=== PATIENT | female | born 1975 | race Caucasian/White ===

== ENCOUNTER → 2017-11-22 07:45 | Outpatient (CLI) | payer BC, SELFPAY ==
[2017-11-22 08:22] LABS: Absolute Lymphocyte Count 1.84 X10^3/ul (0.83-4.51); Absolute Neutrophil Count 8.2 X10^3/uL (2.0-7.7); Basophil# 0.02 X10^3/uL; Basophil% 0.2 % (0-1); Hematocrit 37.4 % (37-47); Hemoglobin 12.1 g/dl (12.0-15.0); Lymphocyte # 1.84 X10^3/ul (4.0); Lymphocyte % 17.2 % (19-41); Mean Corp Hgb Conc 32.4 g/gl (32-36); Mean Corpuscular Volume 80.3 fL (81-99); Mean Platelet Vol. 13.1 fl (6.2-12.0); Monocyte# 0.61 X10^3/uL; Monocyte% 5.7 % (0-10); Neutrophil # 8.23 X10^3/uL (2.7-7.7); Neutrophil % 76.8 % (47-70); Platelet Count 235 K/mm3 (150-450); RBC Distribution Width CV 14.7 % (11.6-14.6); RBC Distribution Width SD 42.2 fl (35.1-43.9); Red Blood Count 4.66 M/mm3 (4.2-5.4); White Blood Count 10.7 K/mm3 (4.4-11.0)
[2017-11-22 08:26] LABS: POSITIVE COUNT NO; POSITIVE DIFFERENTIAL NO; POSITIVE MORPHOLOGY NO
[2017-11-22 09:03] LABS: ALB/GLOB Ratio 0.7 RATIO (0.9-2.4); AST(SGOT) 13 U/L (15-37); Alanine Aminotransfer ALT/SGPT 22 U/L (13-56); Albumin, Serum 3.5 g/dL (3.2-5.0); Alkaline Phosphatase 46 U/L (45-117); Anion Gap 11 (5-15); BUN 19 mg/dL (7-18); Calcium,Total 8.8 mg/dL (8.5-10.1); Chloride 104 mmol/L (98-107); Cholesterol 295 mg/dL (200); Creatinine, Serum 0.68 mg/dL (0.55-1.02); EST Glomerular Filtration Rate 101 mL/min (>60); Est Glom Filt Rate - Afr Amer 122 mL/min (>60); Ferritin 4 ng/mL (8-252); Globulin 4.8 g/dL (2.2-4.2); Glucose 119 mg/dL (74-106); High Density Lipoprotein 63 mg/dL; Iron 52 ug/dL (50-170); Potassium 4.1 mmol/L (3.5-5.1); Protein, Total 8.3 g/dL (6.4-8.2); Sodium Level 139 mmol/L (136-145); Thyroid Stim Hormone (TSH) 0.81 uIU/mL (0.358-3.74); Triglycerides 152 mg/dL; Very Low Density Lipoprotein 30 mg/dL (5-40)
[2017-11-22 09:09] LABS: Vitamin B12 867 pg/mL (211-911); Vitamin D,25 Hydroxy 27.4 ng/mL (29.95-100.01)
== END ==
PROVIDERS: Family Provider Family Medicine; PCP Family Medicine; Visit Provider Family Medicine
DX: E78.5 Hyperlipidemia, unspecified (principal); R20.2 Paresthesia of skin; Z51.81 Encounter for therapeutic drug level monitoring; E55.9 Vitamin D deficiency, unspecified; D64.9 Anemia, unspecified; R53.83 Other fatigue
CPT/HCPCS: 36415; 80053; 80061; 82306; 82607; 82728; 83540; 84443; 85025

== ENCOUNTER → 2018-08-07 16:05 | Outpatient (CLI) | payer BC, SELFPAY ==
[2018-08-07 17:14] LABS: Erythrocyte Sedimentation Rate 10 mm/hr (0-20)
[2018-08-07 17:23] LABS: CRP 9.86 mg/L (0.0-3.0); Rheumatoid Factor < 10.0 IU/mL (<15)
[2018-08-10 02:33] LABS: Rapid Plasmin Reagin (RPR) NONREACTIVE (NONREACTIVE)
[2018-08-10 11:58] LABS: ANTINUCLEAR ANTIBODIES DIRECT Positive (Negative)
[2018-08-15 15:38] LABS: CCP IgG Antibodies 7 units (0-19); HLA B27 Negative (.); Treponema palladium Ab (FTA) Non Reactive (Non Reactive)
== END ==
PROVIDERS: Family Provider Family Medicine; PCP Family Medicine; Referring Provider Family Medicine; Visit Provider Family Medicine
DX: M25.50 Pain in unspecified joint (principal); Z20.1 Contact with and (suspected) exposure to tuberculosis; Z20.2 Contact with and (suspected) exposure to infections with a predominantly sexual mode of transmission
CPT/HCPCS: 36415; 81374; 85652; 86038; 86140; 86200; 86431; 86592; 86780

== ENCOUNTER → 2018-08-14 09:18 | Outpatient (CLI) | payer BC, SELFPAY ==
[2018-08-14 09:11] VITALS: BMI 26.1
--- NOTE | 2018-08-14 09:21 | RAD_ITS ---
STUDY: X-RAY - LUMBOSACRAL SPINE REASON FOR EXAM: Female, 43 years old. Pain. TECHNIQUE: 6 view(s) of the lumbosacral spine were obtained. COMPARISON: None FINDINGS: Normal lumbar lordosis. There is no substantial scoliosis. There is normal alignment of the vertebrae. There is no alteration of alignment with flexion or extension. Normal vertebral bodies and endplates. Normal disc space heights. Cervical spine fracture Normal bilateral sacral ala, sacroiliac joints, and visualized sacrum. Normal visualized soft tissue structures. RAD/L/S Spine Comp/w Bending Views IMPRESSION: Normal x-ray examination of the lumbosacral spine. Electronically Signed: Robert Mace DO at 22:18 EST Tel [phone], Service support ,
--- OUTSIDE RECORDS SUMMARY | 2018-09-30 08:11 | XMS RPT_ITS ---
:1975 Author Organization OHIP Care Team Providers Name Role Phone Reyna Germain Attending Unavailable Malys, Viola Referring Unavailable Reyna Germain Attending Unavailable Reyna Germain Referring Unavailable Malys, Viola Primary Care Unavailable Malys, Viola Attending Unavailable Malys, Viola Referring Unavailable Malys, Viola Primary Care Unavailable Malys, Viola Attending Unavailable Malys, Viola Primary Care Unavailable Malys, Viola Referring Unavailable Reyna Germain Attending Unavailable GermainReyna Referring Unavailable Junaid, Viola Primary Care Unavailable MalViola foley Attending Unavailable Malog, Viola Primary Care Unavailable Malog, Viola Referring Unavailable PROBLEMS PROBLEMS DATE TYPE CONDITION / CODE ATTENDING STATUS SOURCE 08/16/2018 Unknown Z20.2 - Contact Viola Quiroga Active [place] with and Community (suspected) Hospital exposure to Repository infections with a predominantly sexual mode of transmission / Z20.2(ICD-10) 08/16/2018 Unknown R76.8 - Other Malys, Viola Active [place] specified abnormal Community immunological Hospital findings in serum / Repository R76.8(ICD-10) 08/14/2018 Unknown M54.5 - Low back Jessa Eryna Active [place] pain / Community M54.5(ICD-10) Hospital Repository 08/17/2018 Unknown M25.50 - Pain in Staci Quirogaa Active [place] unspecified joint / Community M25.50(ICD-10) Hospital Repository 11/22/2017 Unknown E78.5 - Malys, Viola Active [place] Hyperlipidemia, Community unspecified / Hospital E78.5(ICD-10) Repository 11/22/2017 Unknown R20.2 - Paresthesia Malys, Viola Active [place] of skin / Community R20.2(ICD-10) Hospital Repository 11/22/2017 Unknown Z51.81 - Encounter Viola Quiroga Active [place] for therapeutic Community drug level Hospital monitoring / Repository Z51.81(ICD-10) 11/22/2017 Unknown E55.9 - Vitamin D Malys, Viola Active [place] deficiency, Community unspecified / Hospital E55.9(ICD-10) Repository 11/22/2017 Unknown D64.9 - Anemia, Malys, Viola Active [place] unspecified / Community D64.9(ICD-10) Hospital Repository 11/22/2017 Unknown R53.83 - Other Malys, Viola Active [place] fatigue / Community R53.83(ICD-10) Hospital Repository PROCEDURES PROCEDURES No Procedure Records FoundRESULTS RESULTS INITAL EVALUATION (1) Observed: 08/30/2018 Status: F Source: [place] - PT 2:12 PM [facility] HOSPITAL REPOSITORY [facility] Physical Therapy [address] [place] [address] / REHABILITATION SERVICES INITIAL EVALUATION MR#: [id number] Acct: [id number] Name: RASHAD KRISHNAMURTHY Rep #: [id number] : 1975 43 From: Luther Gauthier PT. T, OCS Referring Dr.: Reyna Germain MD Status: REG RCR Insurance: [employer] SELF PAY INSURANCE Patient's Visit Information RASHAD KRISHNAMURTHY is a 43 year old F referred to Physical Therapy by Reyna Germain MD with a diagnosis of BACK PAIN,LEFT LUBAR RADICULOPATHY. Date of Evaluation: 08/27/18 Physical Therapist: Maksim Telles PT, Cert T, OCS - Visit Plan Frequency: 2x /Week Duration: 4 Weeks Plan: LE FLEXABLITY,DLS ,ABD/BACK ,POSTURAL EX'S,AND MODALITIES NEEDED - Subjective Findings: This 43 y/o female presents to physical therapy with lumbar radiculopathy . Patient has lumbar pain with radicular symptoms since November. Patient symptoms worse with bending ,lifting,job demands ,sitting. Symptoms better injections,MEDS. Pateint tried chiropractor made symptoms worse. Patient coughing/sneezing worse . Patient had parathesia/tingling. Patient pain worse at night. 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 Patient has TENS at unit. Patient symptoms affect QOL and job demands. SOCIAL: 3 maura. 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 PALPATION: unremarkable. NEURO: denies parathesia/tingling,reflexes 1/3 ,L3-4,L4-5,L5-S1. MMT: quads/hams/hip 4/5,ankle 4/5. LUMBAR ROM: flexion min loss,extension mod loss pain ,side glides minm loss. SYMMTRIES : align - Special Tests L/S Slump test left side: Positive L/S Slump test right side: Positive L/S Left Straight Leg Raise: Negative L/S Right Straight Leg Raise: Positive Lumbar Standing: Flexion - Mechanical Response: No effect Lumbar Standing: Flexion - Symptoms During Testing: Increases Lumbar Standing: Flexion - Symptoms After Testing: No effect Lumbar Standing: Extension - Mechanical Response: No effect Lumbar Standing: Extension - Symptoms During Testing: Increases Lumbar Standing: Extension - Symptoms After Testing: Worse Lumbar Standing: Right Side Glides - Mechanical Response: No effect Lumbar Standing: Right Side Hampton - Symptoms During Testing: No effect Lumbar Standing: Right Side [place] - Symptoms After Testing: No effect Lumbar Standing: Left Side [place] - Mechanical Response: No effect Lumbar Standing: Left Side [place] - Symptoms During Testing: Increases Lumbar Standing: Left Side [place] - Symptoms After Testing: Worse Lumbar Lying: Flexion - Mechanical Response: No effect Lumbar Lying: Flexion - Symptoms During Testing: No effect Lumbar Lying: Flexion - Symptoms After Testing: No effect Lumbar Lying: Extension - Mechanical Response: No effect Lumbar Lying: Extension - Symptoms During Testing: Increases Lumbar Lying: Extension - Symptoms After Testing: Worse - Goals Goal 1:: Independant with HEP. Goal Time Frame: 4-6 Weeks Goal 2:: Independant with posture/body mechanics Goal Time Frame: 4-6 Weeks Goal 3:: Decrease lumbar symptoms with job demands by 70% or grearer to improve function Goal Time Frame: 4-6 Weeks Goal 4:: Patient to improve lumbar ROM for function of recovery Goal Time Frame: 4-6 Weeks Goal 5:: Patient be able to perform job demands and ADL'S with min limitations Goal Time Frame: 4-6 Weeks Goal 6:: Patient improve MERRILL score by 5 points or greater to imprpove QOL. Goal Time Frame: 4-6 Weeks - Rehabilitation Potential Physical Therapy Diagnosis: This 43 y/o femal had HNP with lateral stenosis with pain ,loss of extension,flexion makes symptoms worse,lifting,bending and impairs job demands.Patient also has weak core and generalized weakness. Rehabilitation Potential: Good - Anticipated Interventions Patient/Client Instruction: Educate patient on: Condition, Plan of Care For the Purpose of:: To decrease pain, To increase ROM, To improve muscle performance and motor function, To improve ability to perform ADL's, To increase tolerance to activity/condition/position, To decrease level of supervision to perform tasks, To improve ability of physical actions for home/community/work/leisure, To improve health of tissue, To decrease soft tissue restriction, To improve safety, To improve health and function, To improve ability to perform tasks related to life management Therapeutic Exercise to Include: Strength training, Body mechanics, Postural training, Flexibilty training, Dynamic Lumbar Stabilization For the Purpose of:: To decrease pain, To increase ROM, To improve muscle performance and motor function, To increase tolerance to activity/condition/position, To improve performance and independence with ADL's, To improve ability of physical actions for home/community/work/leisure, To improve health of tissue, To decrease soft tissue restriction, To increase flexibility/ROM, To improve ability to perform tasks related to life management TENS: Yes IF ES: Yes Thermo therapy (hot pack): Yes Ultrasound (thermal/non thermal): Yes For the Purpose of:: To decrease pain, To increase ROM, To improve nutrient delivery to tissue, To increase oxygenation perfusion, To improve health of tissue, To decrease soft tissue restriction Thank you for the opportunity to evaluate your patient. For Medicare and Medicare HMO plans, please review the plan of care and approve it. It will need to be FAXED BACK to us at [phone] for Medicare purposes. For Medicare only, by signing this I certify the plan of care. Please let me know if there are questions or concerns regarding this plan of care. Physician Signature: Date: <Electronically signed by Maksim Telles PT, Cert. CURTIS, OCS> 08/30/18 1412 CC: Reyna Germain MD; [place] Quiroga DO NICK Signed ORTHOPEDIC VISIT Observed: 08/25/2018 Status: F Source: [place] REPORT 8:[address] [facility] REPOSITORY [facility] Medicine [address] [place] [id number] OFFICE VISIT Date of Service: 08/14/18 MR#: [id number] Acct: [id number] Name: RASHAD KRISHNAMURTHY Rep #: [id number] : 1975 Provider: Reyna Germain MD Age/Sex: 43/F Location: BMS.SMO Status: Signed Intake Vital Signs08/14/18 Height 5 ft 4 in 08/14/18 Weight: 152 lb 08/14/18 Body Mass Index (BMI) 26.1 Intake Visit Reasons: low back pain Is patient in pain?: No Medications amlodipine 5 mg tablet 5 mg PO DAILY 08/15/18 [History Confirmed 08/15/18] bupropion HCl XL 300 mg 24 hr tablet, extended release 300 mg PO QAM 08/15/18 [History Confirmed 08/15/18] norgestimate-ethinyl estradiol 0.18 mg/0.215mg/0.25mg-35 mcg(21)tablet 1 tab PO DAILY 08/15/18 [History Confirmed 08/15/18] HPI low back pain: Details: RASHAD KRISHNAMURTHY is a 43 year old RHD F here today for lumbar pain and left posterior thigh, calf and plantar foot pain. Her pain began in September of 2017 and her pain was 10/10, she tried pain patches and tens unit at home. She does a lot of heavy lifting and believes that is how she hurt her back. She did get a toradol shot from family doctor and she sees Dr Santos for injections that are helpful for about two- three months at a time, her last one was 6wks ago and they are relieving the leg n/t and her foot numbness is completely gone. She states they were nerve blocks in the summer and fall of 2017. She had tried chiropractice treatment, which worsened her symptoms. Her pain since 09/2017 is nearly 80% improved. She has no leg pain anymore. She has had no physical therapy. She takes tramadol as needed, about 2 times per week. Her symptoms were worse with bending and lifting and improved with rest and laying. She was unable to tolerate gabapentin due to drowsiness and weight gain. She has failed cymbalta in the past as well. She denies difficulty with hand dexterity, gait instability or bowel or bladder issues. She is currently undergoing work up for a positive MICAELA and possible lupus. 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 She denies nicotine use. Ortho Exam Spine Neuro: Yes Straight Leg Raise (mild discomfort on the left calf), Light Touch Sensation (intact throughout), Avendano's (negative bilaterally), Clonus (none bilaterally) and Babinski (downgoing bilaterally) General: alert, oriented x3 Skin: Yes dysraphism (none) Capillary Refill <2sec: Yes Palpable Pulses: 2+ dp and pt pulses bilaterally Gait: normal gait, other (heel and toe walk intact) Motor: strength 5/5 throughout Sensory Exam: no sensory deficits noted DTR's: Rt Triceps: 2+, Lt Triceps: 2+, Rt Biceps: 2+, Lt Biceps: 2+, Rt Brachioradialis: 2+, Lt Brachioradialis: 2+, Rt Patellar: 2+, Lt Patellar: 2+, Rt Ankle: 2+, Lt Ankle: 2+ Plantar Reflexes: Downgoing: bilateral Coordination: tandem gait normal, Romberg test normal SPINE TESTING CERVICAL THORACIC LUMBAR SLR: Negative Musculoskeletal General: Yes normal gait Cervical Spine: cervical ROM normal Thoracic/Lumbar Spine: thoraco-lumbar ROM limited, paraspinal tenderness, pain with thoraco-lumbar ROM (worse with lumbar extension than flexion) Strength 0=absent - 5=normal Deltoid R (C5): 5, Deltoid L (C5): 5, R Bicep (C5-6): 5, L Bicep (C5-6): 5, R Wrist Extensor (C6): 5, L Wrist Extensor (C6): 5, R Tricep (C7): 5, L Tricep (C7): 5, R Finger Flexors (C8): 5, L Finger Flexors (C8): 5, R First Dorsal Interossei (C8): 5, L First Dorsal Interossei (C8): 5, R Hip Flexor (L1-3): 5, L Hip Flexor (L1-3): 5, R Quadriceps (L2-4): 5, L Quadriceps (L2-4): 5, R Anterior Tibialis (L4-5): 5, L Anterior Tibialis (L4- 5): 5, R Hamstrings (L5-S1): 5, L Hamstrings (L5-S1): 5, GS (S1): 5, L GS (S1): 5, R Peroneals (S1): 5, L Peroneals (S1): 5 Assessment AND Plan Problems 1. Lumbar radiculopathy M54.16 Plan Imaging: XR lumbar spine 08/14/2018 reveals diffuse spondylosis MRI lumbar spine CD 02/26/2018 reveals diffuse spondylosis with left L4-5 lateral recess stenosis I/R/P: 1. back pain 2. left leg pain, improving 3. work up for positive MICAELA Ms. Krishnamurthy presents with back and left leg pain that is 80% improved since the onset. The natural history and course of the symptomatology of lumbar radiculopathy was discussed in detail with the patient. I answered all questions regarding the mode of onset, pathophysiology, symptoms, imaging findings, treatment options (both non-operative and operative) regarding her diagnosis. Given her symptoms have significantly improved, would recommend continued conservative treatment. She will continue to work with her PCP to rule out reasons for positive MICAELA, to include lupus. Follow up if symptoms recur or sooner if issues arise. Plan of care discussed. All questions answered. The patient verbalized understanding of the disease process and agreed to the treatment plan formulated for this visit. Orders Orders: Coding Level of Care Code Off vis,new,level 4 Diagnoses Lumbar radiculopathy M54.16 08/25/182040 <Electronically signed by Reyna Germain MD> Date Reyna Germain MD Cosigner Signature: Date (if applicable) CC: Trang Santos MD MICAELA W/COMPREHENSIVE Collected: 08/16/2018 Status: F Source: [place] 4:[address] [facility] REPOSITORY TYPE CODE TESTS RESULT OUT OF RANGE REFERENCE UNITS LAB L3100.5500 0-9 IU/mL Normal dsDNA AB 2 Result Comment: Negative <5 Equivocal 5 - 9 Positive >9 LAB L3100.9200 0.0-0.9 AI Anti-SS-A Normal < 0.2 LAB L3100.9300 0.0-0.9 AI Anti-SS-B Normal < 0.2 LAB L3100.9400 0.0-0.9 AI Anti-P Normal <0.2 LAB L3410.0427 0.0-0.9 AI ANTICHROMATIN Normal <0.2 LAB L3410.0500 0.0-0.9 AI ANTI-SAMEERA Normal <0.2 LAB L3410.0700 0.0-0.9 AI ANTISCLER Normal <0.2 LAB L3410.1200 0.0-0.9 AI HEARING CARE PROFESSIONAL Ab High 1.6 LAB L3410.1300 0.0-0.9 AI ZUÑIGA Ab Normal <0.2 LAB L3410.1310 0.0-0.9 AI ZUÑIGA/HEARING CARE PROFESSIONAL Ab Normal <0.2 LAB L3410.4010 0.0-0.9 AI ANTI-CENT B Normal <0.2 LAB L3410.4100 . COMMENT Normal Comment Result Comment: Autoantibody Disease Association Condition Frequency Antinuclear Antibody, SLE, mixed connective Direct (MICAELA-D) tissue diseases dsDNA SLE 40 - 60% Chromatin Drug induced SLE 90% SLE 48 - 97% SSA (Ro) SLE 25 - 35% Sjogren's Syndrome 40 - 70% Lupus 100% SSB (La) SLE 10% Sjogren's Syndrome 30% Sm (anti-Zuñiga) SLE 15 - 30% HEARING CARE PROFESSIONAL Mixed Connective Tissue Disease 95% (U1 nRNP, SLE 30 - 50% anti-ribonucleoprotein) Polymyositis and/or Dermatomyositis 20% Scl-70 (antiDNA Scleroderma (diffuse) 20 - 35% topoisomerase) Crest 13% Sameera-1 Polymyositis and/or Dermatomyositis 20 - 40% Centromere B Scleroderma - Crest variant 80% Ribosomal P SLE 10 - 20% Performed at: [facility] [address] [place], [place] [id number] Audio Visual Collections Coordinator: Enzo Hwang PhD, Phone: [phone] Performed By: #### L3100.5430 #### [facility] (refer to report for specific site) refer to report for address and phone number L/S SPINE COMP/W Observed: 08/14/2018 Status: F Source: [place] BENDING VIEWS 9:[address] [facility] REPOSITORY [facility] Imaging Services [address] [place] [address] L/S Spine Comp/w Bending Views MR#: [id number] Acct: [id number] Name: RASHAD KRISHNAMURTHY Rep #: [id number] : 1975 F 43 From: Robert Mace DO PCP: [place] Quiroga DO Status: REG CLI Study: L/S Spine Comp/w Bending Views Date of Exam: 08/14/18 Exam# [id number] Ordering Dr: Reyna Germain MD STUDY: X-RAY - LUMBOSACRAL SPINE REASON FOR EXAM: Female, 43 years old. Pain. TECHNIQUE: 6 view(s) of the lumbosacral spine were obtained. COMPARISON: None FINDINGS: Normal lumbar lordosis. There is no substantial scoliosis. There is normal alignment of the vertebrae. There is no alteration of alignment with flexion or extension. Normal vertebral bodies and endplates. Normal disc space heights. Cervical spine fracture Normal bilateral sacral ala, sacroiliac joints, and visualized sacrum. Normal visualized soft tissue structures. RAD/L/S Spine Comp/w Bending Views IMPRESSION: Normal x-ray examination of the lumbosacral spine. Electronically Signed: Robert Mace DO at 22:18 EST Tel [phone], Service support , CC: Reyna Germain MD; [place] Quiroga DO Supervisory Aide: Signed ERYTHROCYTE SED RATE Collected: 08/07/2018 Status: F Source: [place] 4:[address] [facility] REPOSITORY TYPE CODE TESTS RESULT OUT OF RANGE REFERENCE UNITS LAB L102.0000 0-20 mm/hr Normal SED RATE 10 Performed By: #### L101.9900 #### [facility] [address] [place], [place], [address] CRP Collected: 08/07/2018 Status: F Source: [place] 4:[address] [facility] REPOSITORY TYPE CODE TESTS RESULT OUT OF RANGE REFERENCE UNITS LAB L501.6710 0.0-3.0 mg/L High 9.86 C-REACTIVE PROT Result Comment: C-Reactive Protein (CRP) provides useful information for the diagnosis, therapy and monitoring of inflammatory processes and associated diseases. For the evaluation of Relative Risk for Cardiovascular Disease, a High Sensitivity CRP (HSCRP) should be ordered. Performed By: #### L501.6710, L505.7010 #### [facility] [facility] [place], [place], [address] RHEUMATOID FACTOR Collected: 08/07/2018 Status: F Source: [place] 4:[address] [facility] REPOSITORY TYPE CODE TESTS RESULT OUT OF RANGE REFERENCE UNITS LAB L505.7010 <15 IU/mL Normal RHEUMATOID FAC < 10.0 Performed By: #### L501.6710, L505.7010 #### [facility] [address] [facility] [place], [place], [id number] RAPID PLASMIN REAGIN Collected: 08/07/2018 Status: F Source: [place] (RPR) 4:[address] [facility] REPOSITORY TYPE CODE TESTS RESULT OUT OF REFERENCE UNITS RANGE LAB L700.5000 NONREACTIVE NONREACTIVE Normal RPR Performed By: #### L700.5000 #### [facility] [address] [facility] [place], [place], [id number] ANTINUCLEAR ANTIBODIES Collected: 08/07/2018 Status: F Source: [place] DIRECT 4:[address] [facility] REPOSITORY TYPE CODE TESTS RESULT OUT OF REFERENCE UNITS RANGE LAB L3100.5475 Negative High Positive MICAELA-DIRECT Result Comment: Performed at: [address] [id number] Audio Visual Collections Coordinator: Enzo Hwang PhD, Phone: [phone] Performed By: #### L3100.5475 #### [facility] (refer to report for specific site) refer to report for address and phone number MISCELLANEOUS LAB Collected: 08/07/2018 Status: F Source: [place] PROCEDURE 4:[address] [facility] REPOSITORY Order Comment: Test(s) Ordered: [id number] QUANTIFERON TYPE CODE TESTS RESULT OUT OF RANGE REFERENCE UNITS LAB L801.1541 Normal [facility] LAB TEST Result Comment: TEST RESULT LIMITS QuantiFERON-TB Gold Plus QuantiFERON Incubation Incubation performed. QuantiFERON Criteria The QuantiFERON-TB Gold Plus result is determined by subtracting the Nil value from either TB antigen (Ag) tube. The mitogen tube serves as a control for the test. QuantiFERON TB1 Ag Value 0.08 IU/mL QuantiFERON TB2 Ag Value 0.08 IU/mL QuantiFERON Nil Value 0.09 IU/mL QuantiFERON Mitogen Value >10.00 IU/mL QuantiFERON-TB Gold Plus Negative Negative TESTING PERFORMED AT [facility]. ORIGINAL REPORT ON FILE IN LAB CONTAINS ADDITIONAL TEST SITE INFORMATION. Performed By: #### L801.1541 #### [facility] [address] [place], [place], [address] TREPONEMA PALLADIUM AB Collected: 08/07/2018 Status: F Source: [place] (FTA) 4:[address] [facility] REPOSITORY TYPE CODE TESTS RESULT OUT OF RANGE REFERENCE UNITS LAB L801.4400 Non Reactive Normal FTA Non Reactive ABS Result Comment: Performed at: [address] [place] [id number] Audio Visual Collections Coordinator: Manuel Jj PhD, Phone: [phone] Performed at: [address] [id number] Audio Visual Collections Coordinator: Corinne Corea MD, Phone: [phone] Performed at: [address] [id number] Audio Visual Collections Coordinator: Enzo Hwang PhD, Phone: [phone] Performed By: #### L801.4400, L3410.1400, L4600.0100 #### [facility] (refer to report for specific site) refer to report for address and phone number HLA B27 Collected: 08/07/2018 Status: F Source: [place] 4:[address] [facility] REPOSITORY TYPE CODE TESTS RESULT OUT OF RANGE REFERENCE UNITS LAB L3410.1500 . Normal HLA Negative B27 Result Comment: HLA-B*27 Negative B27 allele interpretation for all loci based on IMGT/HLA database version 3.31.0 This test was developed and its performance characteristics determined by [facility]. It has not been cleared or approved by the Food and Drug Administration. HLA Lab CLIA ID Number [id number] This test was performed using PCR (Polymerase Chain Reaction)/SSOP (Sequence Specific Oligonucleotide Probes) technique. SBT (Sequence Based Typing) and/or SSP (Sequence Specific Primers) may be used as supplemental methods when necessary. Please contact [facility] Customer Service at if you have any questions. Director of HLA Laboratory Dr Manuel Jj, PhD Performed By: #### L801.4400, L3410.1400, L4600.0100 #### [facility] (refer to report for specific site) refer to report for address and phone number CCP IGG ANTIBODIES Collected: 08/07/2018 Status: F Source: [place] 4:[address] [facility] REPOSITORY TYPE CODE TESTS RESULT OUT OF RANGE REFERENCE UNITS LAB L4600.0100 0-19 units Normal ANTI-CCP 7 [id number] Result Comment: Negative <20 Weak positive 20 - 39 Moderate positive 40 - 59 Strong positive >59 Performed By: #### L801.4400, L3410.1400, L4600.0100 #### [facility] (refer to report for specific site) refer to report for address and phone number CBC W/DIFF, AUTOMATED Collected: 11/22/2017 Status: F Source: [place] 7:[address] [facility] REPOSITORY TYPE CODE TESTS RESULT OUT OF RANGE REFERENCE UNITS LAB L100.1000 4.4-11.0 K/mm3 Normal WBC 10.7 LAB L100.1200 4.2-5.4 M/mm3 Normal RBC 4.66 LAB L100.1300 12.0-15.0 g/dl Normal HGB 12.1 LAB L100.1400 37-47 % Normal HCT 37.4 LAB L100.1500 81-99 fL Low MCV 80.3 LAB L100.1600 27.0-32.0 pg Low MCH 26.0 LAB L100.1700 32-36 g/gl Normal MCHC 32.4 LAB L100.1810 11.6-14.6 % High RDW CV 14.7 LAB L100.1820 35.1-43.9 fl Normal RDW SD 42.2 LAB L100.1900 150-450 K/mm3 Normal PLT 235 LAB L100.2000 6.2-12.0 fl High MPV 13.1 LAB L100.2100 47-70 % High NEUT% 76.8 LAB L100.2200 19-41 % Low LY% 17.2 LAB L100.2300 0-10 % Normal MONO% 5.7 LAB L100.2400 0-5 % Normal EO% 0.0 LAB L100.2500 0-1 % Normal BASO% 0.2 LAB L100.2550 0.0-0.9 % Normal IM GRAN % 0.100 Result Comment: IG% - Immature Granulocytes (promyelocytes, myelocytes and metamyelocytes) > 1% indicates that a LEFT SHIFT is Present. LAB L100.2620 2.0-7.7 X10 3/uL High Absolute Neut 8.2 LAB L100.2720 0.83-4.51 X10 3/ul Normal Absolute Lymph 1.84 Performed By: #### L100.0100 #### [facility], [address] COMPREHENSIVE METABOLIC Collected: 11/22/2017 Status: F Source: [place] [facility] 7:[address] [facility] REPOSITORY TYPE CODE TESTS RESULT OUT OF RANGE REFERENCE UNITS LAB L501.0100 74-106 mg/dL High GLU 119 Result Comment: Fasting Glucose result from 100 to 125 mg/dL suggests IMPAIRED HOMEOSTASIS per A.D.A. criteria. Please note revised GLUCOSE reference range effective 2017. LAB L501.1000 7-18 mg/dL High BUN 19 LAB L501.1100 0.55-1.02 mg/dL Normal CREAT,SERUM 0.68 Result Comment: The validity of the calculated GFR AND GFRAA in patients over 70 years has not been determined. Clinical correlation is essential. LAB L501.1110 >60 mL/min Normal EST GFR 101 Result Comment: Non- GFR Calc LAB L501.1115 >60 mL/min Normal EST GFR - AA 122 Result Comment: GFR Calc LAB L501.1300 10-20 RATIO High BUN/CRE 28.0 LAB L501.1500 6.4-8.2 g/dL High T PROT 8.3 LAB L501.1800 3.2-5.0 g/dL Normal ALB 3.5 LAB L501.1950 2.2-4.2 g/dL High GLOB 4.8 LAB L501.2000 0.9-2.4 RATIO Low A/G 0.7 LAB L501.2200 8.5-10.1 mg/dL CA Normal 8.8 LAB L501.4100 15-37 U/L Low AST 13 LAB L501.4305 45-117 U/L Normal ALK P 46 LAB L501.4405 13-56 U/L Normal ALT 22 Result Comment: Please note revised ALT reference range effective 2017. LAB L501.4600 0.20-1.00 mg/dL Normal T BILI 0.20 LAB L501.5300 136-145 mmol/L Normal NA 139 LAB L501.5600 3.5-5.1 mmol/L Normal K 4.1 LAB L501.5900 98-107 mmol/L Normal CL 104 LAB L501.6100 21.0-32.0 mmol/L Normal CO2 24.0 LAB L501.6200 5-15 Normal GAP 11 Performed By: #### L500.4050, L500.4100, L501.9520, L503.6150, L503.6550 #### [facility] [address] [place], [address] LIPID PROFILE Collected: 11/22/2017 Status: F Source: BEAMAN 7:[address] [facility] REPOSITORY TYPE CODE TESTS RESULT OUT OF RANGE REFERENCE UNITS LAB L501.4900 200 mg/dL High CHOL 295 Result Comment: <200 mg/dL Desirable 200-240 mg/dL Borderline >240 mg/dL High Risk LAB L501.5000 mg/dL Normal TRIG 152 Result Comment: The drugs N-Acetylcysteine and Metamizole may falsely depress this assay. Serum Triglycerides Reference Interval Normal <150 mg/dL Borderline high 150 - 199 mg/dL High 200 - 499 mg/dL Very High > or = 500 mg/dL LAB L501.6400 mg/dL Normal HDL 63 Result Comment: The drugs N-Acetylcysteine and Metamizole may falsely depress this assay. Reference Range HDL <40 mg/dL Low HDL Cholesterol HDL >or= 60 mg/dL High HDL Cholesterol LAB L501.6500 0-130 mg/dL High LDL 202 LAB L501.6600 5-40 mg/dL Normal VLDL 30 Performed By: #### L500.4050, L500.4100, L501.9520, L503.6150, L503.6550 #### [facility] [address] [place], [place], [address] THYROID STIM HORMONE Collected: 11/22/2017 Status: F Source: BEAMAN (TSH) 7:[address] [facility] REPOSITORY TYPE CODE TESTS RESULT OUT OF RANGE REFERENCE UNITS LAB L501.9520 0.358-3.74 uIU/mL Normal TSH 0.81 Performed By: #### L500.4050, L500.4100, L501.9520, L503.6150, L503.6550 #### [facility] [address] [place], [place], [address] IRON Collected: 11/22/2017 Status: F Source: BEAMAN 7:[address] [facility] REPOSITORY TYPE CODE TESTS RESULT OUT OF RANGE REFERENCE UNITS LAB L503.6150 50-170 ug/dL Normal IRON 52 Performed By: #### L500.4050, L500.4100, L501.9520, L503.6150, L503.6550 #### [facility] [address] [place], [address] FERRITIN Collected: 11/22/2017 Status: F Source: [place] 7:[address] [facility] REPOSITORY TYPE CODE TESTS RESULT OUT OF REFERENCE UNITS RANGE LAB L503.6550 8-252 ng/mL Low FERRITIN 4 Performed By: #### L500.4050, L500.4100, L501.9520, L503.6150, L503.6550 #### [facility] [address] [place], [address] VITAMIN B12 Collected: 11/22/2017 Status: F Source: [place] 7:[address] [facility] REPOSITORY TYPE CODE TESTS RESULT OUT OF RANGE REFERENCE UNITS LAB L503.0105 211-911 pg/mL Normal Vitamin B12 867 Performed By: #### L503.0105, L506.1000 #### [facility] [address] [place], [address] VITAMIN D,25 HYDROXY Collected: 11/22/2017 Status: F Source: [place] 7:[address] [facility] REPOSITORY TYPE CODE TESTS RESULT OUT OF REFERENCE UNITS RANGE LAB L506.1000 29.95-100.01 ng/mL Low Vitamin D 27.4 25-OH Result Comment: Vitamin D 25(OH) Status Range Deficiency <20 ng/mL (50nmol/L) Insuffciency 20 - 30 ng/mL (50 - 75 nmol/L) Sufficiency 30 - 100 ng/mL (75 - 250 nmol/L) Toxicity >100 ng/mL (>250 nmol/L) Performed By: #### L503.0105, L506.1000 #### [facility] [address] [place], [address] ALLERGIES ALLERGIES No Allergies Records FoundENCOUNTERS ENCOUNTERS ADMIT/DISCHARGE ACCOUNT ADMITTING ENCOUNTER LOCATION SOURCE NUMBER CLASS 08/27/2018 [id number] Ambulatory [facility] 6 [facility] ing:PT Repository 08/16/2018 [id number] Ambulatory [facility] 2 [facility] ing:LAB.FUTUR Repository E 08/14/2018 [id number] Ambulatory [place] 0 [facility] ing:HPRAD Repository 08/14/2018/ [id number] [facility] BMSBuilding:B [place] [facility] 08/07/2018 [id number] Ambulatory [place] 3 [facility] ing:LAB.FUTUR Repository E 11/22/2017 [id number] Ambulatory [place] 7 [facility] ing:LAB Repository PAYERS PAYERS ENCOUNTER GUARANTOR PAYER SUBSCRIBER SOURCE 08/27/2018 RASHAD J Primary RASHAD J [place] [id number] Insurance:ANTHEMPolic WILLIAMSONDOB: Community CR y Number: [id number] [id number] Repository [place] [address]Fap: ve Date:3460-36-59SQ [address] () [address]OD: 08/27/2018 Secondary NOT GIVENUNK [place] Insurance:SELF PAY [facility] Number: Effective Repository Date:2018-08-14 08/16/2018 RASHAD J Primary RASHAD J [place] [id number] Insurance:ANTHEMPolic WILLIAMSONDOB: Community CR y Number: [id number] [id number] [place]ository [place] [address]Fwk: ve Date:7210-29-26IT [address] [facility]) [address]XR: 08/16/2018 Secondary NOT GIVENUNK [place] Insurance:SELF PAY [facility] Number: Effective Repository Date:2018-08-16 08/14/2018 RASHAD J Primary RASHAD J [place] [id number] Insurance:ANTHEMPolic WILLIAMSONDOB: Community CR y Number: [id number] [id number] Repository [place] [address]Lyy: ve Date:1448-67-45SS [address] [facility]) [address]HG: 08/14/2018 Secondary NOT GIVENUNK [place] Insurance:SELF PAY [facility] Number: Effective Repository Date:2018-08-14 08/14/2018 RASHAD Anthony Primary RASHAD [id number] Insurance:ANTHEMPolic WILLIAMSONDOB: Community CR y Number: [id number], [id number] Repository [place] [address]Sqo: ve Date:3251-28-89CK [address] () [address]AI: 08/14/2018 Secondary NOT GIVENUNK [place] Insurance:SELF PAY [facility] Number: Effective Repository Date:2018-03-13 08/07/2018 RASHAD Anthony Primary RASHAD ANDREWON2330 Insurance:ANTHEMPolic WILLIAMSONDOB: Community CR y Number: [id number], [id number] [place]ository [place] [address]Uzo: ve Date:0202-88-11ND [address] () [address]EA: 08/07/2018 Secondary NOT GIVENUNK [place] Insurance:SELF PAY [facility] Number: Effective Repository Date:2018-08-07 11/22/2017 RASHAD Anthony Primary RASHAD [id number] Insurance:ANTHEMPolic WILLIAMSONDOB: Community CR y Number: [id number], [id number] Repository [place] [address]Hlk: ve Date:5047-52-96[address]BRZSYMT, [place] () [address]YP: 11/22/2017 Secondary NOT GIVENUNK [place] Insurance:SELF PAY [facility] Number: Effective Repository Date:2017-11-22
== END ==
PROVIDERS: Family Provider Family Medicine; PCP Family Medicine; Referring Provider Orthopaedic Surgery; Visit Provider Orthopaedic Surgery
DX: M54.5 Low back pain (principal)
CPT/HCPCS: 72114

== ENCOUNTER → 2018-08-16 16:29 | Outpatient (CLI) | payer BC, SELFPAY ==
[2018-08-14 09:11] VITALS: BMI 26.1
[2018-08-20 14:54] LABS: Anti-Centromere B Ab <0.2 AI (0.0-0.9); Anti-Chromatin <0.2 AI (0.0-0.9); Anti-Jo <0.2 AI (0.0-0.9); Anti-Scleroderma-70 AB <0.2 AI (0.0-0.9); Anti-ribosomal P Antibodies <0.2 AI (0.0-0.9); RNP Ab 1.6 AI (0.0-0.9); SJOGREN'S Anti-SS-A test < 0.2 AI (0.0-0.9); SJOGREN'S Anti-SS-B test < 0.2 AI (0.0-0.9); Smith Ab <0.2 AI (0.0-0.9); Smith/RNP Ab <0.2 AI (0.0-0.9)
[2018-08-21 11:33] LABS: Anti-dsDNA Ab 2 IU/mL (0-9)
--- OUTSIDE RECORDS SUMMARY | 2018-10-02 14:08 | XMS RPT_ITS ---
[...] Unknown Z20.2 - Contact Viola Quiroga Active [place] with and Community (suspected) Hospital exposure to Repository infections with a predominantly sexual mode of transmission / Z20.2(ICD-10) 08/16/2018 Unknown R76.8 - Other Malys, Viola Active [place] specified abnormal Community immunological Hospital findings in serum / Repository R76.8(ICD-10) 08/14/2018 Unknown M54.5 - Low back Jessa Reyna Active [place] pain / Community M54.5(ICD-10) Hospital Repository 08/17/2018 Unknown M25.50 - Pain in Staci Quirogaa Active [place] unspecified joint / Community M25.50(ICD-10) Hospital Repository 11/22/2017 Unknown E78.5 - Malys, Viola Active [place] Hyperlipidemia, Community unspecified / Hospital E78.5(ICD-10) Repository [...] Unknown D64.9 - Anemia, Malys, Viola Active [place] unspecified / Community D64.9(ICD-10) Hospital Repository 11/22/2017 Unknown R53.83 - Other Malys, Viola Active [place] fatigue / Community R53.83(ICD-10) Hospital Repository PROCEDURES PROCEDURES No Procedure Records FoundRESULTS RESULTS INITAL EVALUATION (1) Observed: 08/30/2018 Status: F Source: [place] - PT 2:12 PM [facility] HOSPITAL REPOSITORY [facility] Physical Therapy [address] [place] [address] / REHABILITATION SERVICES INITIAL EVALUATION MR#: [id number] Acct: [id number] Name: RASHAD KRISHNAMURTHY Rep #: [id number] : 1975 43 From: Luther Gauthier PT. [...] and job demands. SOCIAL: 3 maura. 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 For Medicare only, by signing this I certify the plan of care. Please let me know if there are questions or concerns regarding this plan of care. Physician Signature: Date: <Electronically signed by Maksim Telles PT, Cert. CURTIS, OCS> 08/30/18 1412 CC: Reyna [place] MD; Viola Quiroga DO NICK Signed ORTHOPEDIC VISIT Observed: 08/25/2018 Status: F Source: BRONX REPORT 8:41 PM [facility] REPOSITORY [facility]opa[facility]ics AND Sports Medicine [address] [place] [address] OFFICE VISIT Date of Service: 08/14/18 MR#: [id number] Acct: [id number] Name: RASHAD KRISHNAMURTHY Rep #: [id number] : 1975 Provider: Reyna Germain MD Age/Sex: [...] 08/16/2018 Status: F Source: [place] 4:43 PM [facility] REPOSITORY TYPE CODE TESTS RESULT OUT OF [...] ANTISCLER Normal <0.2 LAB L3410.1200 0.0-0.9 AI INDUSTRIAL HIRE SALES ASSISTANT Ab High 1.6 LAB L3410.1300 0.0-0.9 AI ZUÑIGA Ab Normal <0.2 LAB L3410.1310 0.0-0.9 AI ZUÑIGA/INDUSTRIAL HIRE SALES ASSISTANT Ab Normal <0.2 LAB L3410.4010 0.0-0.9 AI [...] 30% Sm (anti-Zuñiga) SLE 15 - 30% INDUSTRIAL HIRE SALES ASSISTANT Mixed Connective Tissue Disease 95% (U1 nRNP, SLE 30 - 50% anti-ribonucleoprotein) Polymyositis and/or Dermatomyositis 20% Scl-70 (antiDNA Scleroderma (diffuse) 20 - 35% topoisomerase) Crest 13% Sameera-1 Polymyositis and/or Dermatomyositis 20 - 40% Centromere B Scleroderma - Crest variant 80% Ribosomal P SLE 10 - 20% Performed at: [facility] [address] [facility] [place], [place] [id number] Programmer Or Analyst: Enzo Hwang PhD, Phone: [phone] Performed By: #### L3100.5430 #### [facility] (refer to report for specific site) refer to report for address and phone number L/S SPINE COMP/W Observed: 08/14/2018 Status: F Source: [place] BENDING VIEWS 9:21 AM [facility] REPOSITORY [facility] Imaging Services [address] [place] [address] L/S Spine Comp/w Bending Views MR#: [id number] Acct: [id number] Name: RASHAD KRISHNAMURTHY Rep #: [id number] : 1975 F 43 From: Robert Mace DO PCP: Viola Quiroga DO Status: REG CLI Study: L/S Spine Comp/w Bending Views Date of Exam: 08/14/18 Exam# [id number] Ordering Dr: Reyna [place] MD STUDY: X-RAY [...] Robert Mace DO at 22:18 EST Tel [phone], Service support , CC: Reyna [place] MD; Viola Quiroga DO Blurb Writer: Signed ERYTHROCYTE SED RATE Collected: 08/07/2018 Status: F Source: [place] 4:11 PM [facility] REPOSITORY TYPE CODE TESTS RESULT OUT OF RANGE REFERENCE UNITS LAB L102.0000 0-20 mm/hr Normal SED RATE 10 Performed By: #### L101.9900 #### [facility] [address] [place], [place], [address] CRP Collected: 08/07/2018 Status: F Source: [place] 4:11 PM [facility] REPOSITORY TYPE CODE TESTS RESULT OUT OF RANGE REFERENCE UNITS LAB L501.6710 0.0-3.0 mg/L High 9.86 C-REACTIVE PROT Result Comment: C-Reactive Protein (CRP) provides useful information for the diagnosis, therapy and monitoring of inflammatory processes and associated diseases. For the evaluation of Relative Risk for Cardiovascular Disease, a High Sensitivity CRP (HSCRP) should be ordered. Performed By: #### L501.6710, L505.7010 #### [facility] [place], [place], [address] RHEUMATOID FACTOR Collected: 08/07/2018 Status: F Source: [place] 4:11 PM [facility] REPOSITORY TYPE CODE TESTS RESULT OUT OF RANGE REFERENCE UNITS LAB L505.7010 <15 IU/mL Normal RHEUMATOID FAC < 10.0 Performed By: #### L501.6710, L505.7010 #### [facility] [address] [facility] [place], [place], [address] RAPID PLASMIN REAGIN Collected: 08/07/2018 Status: F Source: [place] (RPR) 4:11 PM [facility] REPOSITORY TYPE CODE TESTS RESULT OUT OF REFERENCE UNITS RANGE LAB L700.5000 NONREACTIVE NONREACTIVE Normal RPR Performed By: #### L700.5000 #### [facility] [address] [facility] [place], [place], [address] ANTINUCLEAR ANTIBODIES Collected: 08/07/2018 Status: F Source: [place] DIRECT 4:11 PM [facility] REPOSITORY TYPE CODE TESTS RESULT OUT OF REFERENCE UNITS RANGE LAB L3100.5475 Negative High Positive MICAELA-DIRECT Result Comment: Performed at: [address] [id number] Programmer Or Analyst: Enzo Hwang PhD, Phone: [phone] Performed By: #### L3100.5475 #### [facility] (refer to report for specific site) refer to report for address and phone number MISCELLANEOUS LAB Collected: 08/07/2018 Status: F Source: [place] PROCEDURE 4:11 PM [facility] REPOSITORY Order Comment: Test(s) Ordered: [id number] QUANTIFERON TYPE CODE TESTS RESULT OUT OF RANGE REFERENCE UNITS LAB L801.1541 Normal [facility] TEST Result Comment: TEST RESULT LIMITS [...] Gold Plus Negative Negative TESTING PERFORMED AT [facility]. ORIGINAL REPORT ON FILE IN LAB CONTAINS ADDITIONAL TEST SITE INFORMATION. Performed By: #### L801.1541 #### [facility] [address] [place], [place], [address] TREPONEMA PALLADIUM AB Collected: 08/07/2018 Status: F Source: [place] (FTA) 4:11 PM [facility] REPOSITORY TYPE CODE TESTS RESULT OUT OF RANGE REFERENCE UNITS LAB L801.4400 Non Reactive Normal FTA Non Reactive ABS Result Comment: Performed at: [address] [place] [id number] Programmer Or Analyst: Manuel Jj PhD, Phone: [phone] Performed at: [address] [id number] Programmer Or Analyst: Corinne Corea MD, Phone: [phone] Performed at: [address] [id number] Programmer Or Analyst: Enzo Hwang PhD, Phone: [phone] Performed By: #### L801.4400, L3410.1400, L4600.0100 #### [facility] (refer to report for specific site) refer to report for address and phone number HLA B27 Collected: 08/07/2018 Status: F Source: [place] 4:11 PM [facility] REPOSITORY TYPE CODE TESTS RESULT OUT OF RANGE REFERENCE UNITS LAB L3410.1500 . Normal HLA Negative B27 Result Comment: HLA-B*27 Negative B27 allele interpretation for all loci based on IMGT/HLA database version 3.31.0 This test was developed and its performance characteristics determined by [employer]. It has not been cleared or approved by the Food and Drug Administration. HLA Lab CLIA ID Number [id number] This test was performed using PCR (Polymerase [...] 08/07/2018 Status: F Source: [place] 4:11 PM [facility] REPOSITORY TYPE CODE TESTS RESULT OUT OF RANGE REFERENCE UNITS LAB L4600.0100 0-19 units Normal ANTI-CCP 7 [id number] Result Comment: Negative <20 Weak positive 20 - 39 Moderate positive 40 - 59 Strong positive >59 Performed By: #### L801.4400, L3410.1400, L4600.0100 #### [facility] (refer to report for specific site) refer to report for address and phone number CBC W/DIFF, AUTOMATED Collected: 11/22/2017 Status: F Source: [place] 7:59 AM [facility] REPOSITORY TYPE CODE TESTS RESULT OUT OF [...] Lymph 1.84 Performed By: #### L100.0100 #### [facility] [place], [address] COMPREHENSIVE METABOLIC Collected: 11/22/2017 Status: F Source: [place] [facility] 7:59 AM [facility] REPOSITORY TYPE CODE TESTS RESULT OUT OF [...] #### L500.4050, L500.4100, L501.9520, L503.6150, L503.6550 #### [facility] [address] [place], [address] LIPID PROFILE Collected: 11/22/2017 Status: F Source: BRONX 7:59 AM [facility] REPOSITORY TYPE CODE TESTS RESULT OUT OF [...] #### L500.4050, L500.4100, L501.9520, L503.6150, L503.6550 #### [facility] [address] [place], [place], [address] THYROID STIM HORMONE Collected: 11/22/2017 Status: F Source: BRONX (TSH) 7:59 AM [facility] REPOSITORY TYPE CODE TESTS RESULT OUT OF RANGE REFERENCE UNITS LAB L501.9520 0.358-3.74 uIU/mL Normal TSH 0.81 Performed By: #### L500.4050, L500.4100, L501.9520, L503.6150, L503.6550 #### [facility] [address] [place], [place], [address] IRON Collected: 11/22/2017 Status: F Source: BRONX 7:59 AM [facility] REPOSITORY TYPE CODE TESTS RESULT OUT OF RANGE REFERENCE UNITS LAB L503.6150 50-170 ug/dL Normal IRON 52 Performed By: #### L500.4050, L500.4100, L501.9520, L503.6150, L503.6550 #### [facility] [address] [place], [address] FERRITIN Collected: 11/22/2017 Status: F Source: [place] 7:59 AM [facility] REPOSITORY TYPE CODE TESTS RESULT OUT OF REFERENCE UNITS RANGE LAB L503.6550 8-252 ng/mL Low FERRITIN 4 Performed By: #### L500.4050, L500.4100, L501.9520, L503.6150, L503.6550 #### [facility] [address] [place], [address] VITAMIN B12 Collected: 11/22/2017 Status: F Source: [place] 7:59 AM [facility] REPOSITORY TYPE CODE TESTS RESULT OUT OF RANGE REFERENCE UNITS LAB L503.0105 211-911 pg/mL Normal Vitamin B12 867 Performed By: #### L503.0105, L506.1000 #### [facility] [address] [place], [address] VITAMIN D,25 HYDROXY Collected: 11/22/2017 Status: F Source: [place] 7:59 AM [facility] REPOSITORY TYPE CODE TESTS RESULT OUT OF REFERENCE UNITS RANGE LAB L506.1000 29.95-100.01 ng/mL Low Vitamin D 27.4 25-OH Result Comment: Vitamin D 25(OH) Status Range Deficiency <20 ng/mL (50nmol/L) Insuffciency 20 - 30 ng/mL (50 - 75 nmol/L) Sufficiency 30 - 100 ng/mL (75 - 250 nmol/L) Toxicity >100 ng/mL (>250 nmol/L) Performed By: #### L503.0105, L506.1000 #### [facility] [address] [place], [address] ALLERGIES ALLERGIES No Allergies Records FoundENCOUNTERS ENCOUNTERS ADMIT/DISCHARGE ACCOUNT ADMITTING ENCOUNTER LOCATION SOURCE NUMBER CLASS 08/27/2018 [id number] Ambulatory [facility] 6 [facility] ing:PT Repository 08/16/2018 [id number] Ambulatory [facility] 2 [facility] ing:LAB.FUTUR Repository E 08/14/2018 [id number] Ambulatory [place] 0 [facility] ing:HPRAD Repository 08/14/2018/ [id number] Ambulatory BMSBuilding:B [place] [facility] 08/07/2018 [id number] Ambulatory [place] 3 [facility] ing:LAB.FUTUR Repository E 11/22/2017 [id number] Ambulatory [place] 7 [facility] ing:LAB Repository PAYERS PAYERS ENCOUNTER GUARANTOR PAYER SUBSCRIBER SOURCE 08/27/2018 RASHAD J Primary RASHAD J [place] [id number] Insurance:ANTHEMPolic WILLIAMSONDOB: Community CR y Number: [id number] [id number] Repository [place] [address]Pga: ve Date:0459-22-84[address] () [address]WB: 08/27/2018 Secondary NOT GIVENUNK [place] Insurance:SELF PAY [facility] Number: Effective Repository Date:2018-08-14 08/16/2018 RASHAD J Primary RASHAD J [place] [id number] Insurance:ANTHEMPolic WILLIAMSONDOB: Community CR y Number: [id number] [id number] Repository [place] [address]Dbe: ve Date:9205-50-14HL [address] [facility]) [address]VB: 08/16/2018 Secondary NOT GIVENUNK [place] Insurance:SELF PAY [facility] Number: Effective Repository Date:2018-08-16 08/14/2018 RASHAD J Primary RASHAD J [place] [id number] Insurance:ANTHEMPolic WILLIAMSONDOB: Community CR y Number: [id number] [id number] [place]ository [place] [address]Zbc: ve Date:3851-65-13ZS [address] [facility]) [address]DR: 08/14/2018 Secondary NOT GIVENUNK [place] Insurance:SELF PAY [facility] Number: Effective Repository Date:2018-08-14 08/14/2018 RASHAD Anthony Primary RASHAD [id number] Insurance:ANTHEMPolic WILLIAMSONDOB: Community CR y Number: [id number], [id number] Repository [place] [address]Iei: ve Date:6976-81-83[address] () [address]TG: 08/14/2018 Secondary NOT GIVENUNK [place] Insurance:SELF PAY [facility] Number: Effective Repository Date:2018-03-13 08/07/2018 RASHAD Anthony Primary RASHAD [id number] Insurance:ANTHEMPolic WILLIAMSONDOB: Community CR y Number: [id number], [id number] [place]ository [place] [address]Dza: ve Date:3654-05-39CI [address] () [address]EA: 08/07/2018 Secondary NOT GIVENUNK [place] Insurance:SELF PAY [facility] Number: Effective Repository Date:2018-08-07 11/22/2017 RASHAD Anthony Primary RASHAD [id number] Insurance:ANTHEMPolic WILLIAMSONDOB: Community CR y Number: [id number], [id number] [place]ository [place] [address]Nrf: ve Date:8745-63-43[address]PDMGDKF, [place] () [address]RS: 11/22/2017 Secondary NOT GIVENUNK [place] Insurance:SELF PAY [facility] Number: Effective Repository Date:2017-11-22
== END ==
PROVIDERS: Family Provider Family Medicine; PCP Family Medicine; Referring Provider Family Medicine; Visit Provider Family Medicine
DX: M25.50 Pain in unspecified joint (principal); Z20.2 Contact with and (suspected) exposure to infections with a predominantly sexual mode of transmission; R76.8 Other specified abnormal immunological findings in serum
CPT/HCPCS: 36415; 86038; 86225; 86235

== ENCOUNTER 2018-08-27 07:50 | Outpatient (RCR) | payer BC, SELFPAY ==
[2018-08-14 09:11] VITALS: BMI 26.1
--- NOTE | 2018-08-27 09:37 | HP.PTEVAL ---
Patient's Visit Information RASHAD KRISHNAMURTHY is a 43 year old F referred to Physical Therapy by Reyna Germain MD with a diagnosis of BACK PAIN,LEFT LUBAR RADICULOPATHY. Date of Evaluation: 08/27/18 Physical Therapist: Maksim Telles PT, Cert MDT, OCS - Visit Plan Frequency: 2x /Week Duration: 4 Weeks Plan: LE FLEXABLITY,DLS ,ABD/BACK ,POSTURAL EX'S,AND MODALITIES NEEDED - Subjective Findings: This 43 y/o female presents to physical therapy with lumbar radiculopathy . Patient has lumbar pain with radicular symptoms since November. Patient symptoms worse with bending ,lifting,job demands ,sitting. Symptoms better injections,MEDS. Pateint tried chiropractor made symptoms worse. Patient coughing/sneezing worse . Patient had parathesia/tingling. Patient pain worse at night. 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 Patient has TENS at unit. Patient symptoms affect QOL and job demands. SOCIAL: 3 maura. 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 PALPATION: unremarkable. NEURO: denies parathesia/tingling,reflexes 1/3 ,L3-4,L4-5,L5-S1. MMT: quads/hams/hip 4/5,ankle 4/5. LUMBAR ROM: flexion min loss,extension mod loss pain ,side glides minm loss. SYMMTRIES : align - Special Tests L/S Slump test left side: Positive L/S Slump test right side: Positive L/S Left Straight Leg Raise: Negative L/S Right Straight Leg Raise: Positive Lumbar Standing: Flexion - Mechanical Response: No effect Lumbar Standing: Flexion - Symptoms During Testing: Increases Lumbar Standing: Flexion - Symptoms After Testing: No effect Lumbar Standing: Extension - Mechanical Response: No effect Lumbar Standing: Extension - Symptoms During Testing: Increases Lumbar Standing: Extension - Symptoms After Testing: Worse Lumbar Standing: Right Side Glides - Mechanical Response: No effect Lumbar Standing: Right Side [place] - Symptoms During Testing: No effect Lumbar Standing: Right Side [place] - Symptoms After Testing: No effect Lumbar Standing: Left Side [place] - Mechanical Response: No effect Lumbar Standing: Left Side [place] - Symptoms During Testing: Increases Lumbar Standing: Left Side [place] - Symptoms After Testing: Worse Lumbar Lying: Flexion - Mechanical Response: No effect Lumbar Lying: Flexion - Symptoms During Testing: No effect Lumbar Lying: Flexion - Symptoms After Testing: No effect Lumbar Lying: Extension - Mechanical Response: No effect Lumbar Lying: Extension - Symptoms During Testing: Increases Lumbar Lying: Extension - Symptoms After Testing: Worse - Goals Goal 1:: Independant with HEP. Goal Time Frame: 4-6 Weeks Goal 2:: Independant with posture/body mechanics Goal Time Frame: 4-6 Weeks Goal 3:: Decrease lumbar symptoms with job demands by 70% or grearer to improve function Goal Time Frame: 4-6 Weeks Goal 4:: Patient to improve lumbar ROM for function of recovery Goal Time Frame: 4-6 Weeks Goal 5:: Patient be able to perform job demands and ADL'S with min limitations Goal Time Frame: 4-6 Weeks Goal 6:: Patient improve MERRILL score by 5 points or greater to imprpove QOL. Goal Time Frame: 4-6 Weeks - Rehabilitation Potential Physical Therapy Diagnosis: This 43 y/o femal had HNP with lateral stenosis with pain ,loss of extension,flexion makes symptoms worse,lifting,bending and impairs job demands.Patient also has weak core and generalized weakness. Rehabilitation Potential: Good - Anticipated Interventions Patient/Client Instruction: Educate patient on: Condition, Plan of Care For the Purpose of:: To decrease pain, To increase ROM, To improve muscle performance and motor function, To improve ability to perform ADL's, To increase tolerance to activity/condition/position, To decrease level of supervision to perform tasks, To improve ability of physical actions for home/community/work/leisure, To improve health of tissue, To decrease soft tissue restriction, To improve safety, To improve health and function, To improve ability to perform tasks related to life management Therapeutic Exercise to Include: Strength training, Body mechanics, Postural training, Flexibilty training, Dynamic Lumbar Stabilization For the Purpose of:: To decrease pain, To increase ROM, To improve muscle performance and motor function, To increase tolerance to activity/condition/position, To improve performance and independence with ADL's, To improve ability of physical actions for home/community/work/leisure, To improve health of tissue, To decrease soft tissue restriction, To increase flexibility/ROM, To improve ability to perform tasks related to life management TENS: Yes IF ES: Yes Thermo therapy (hot pack): Yes Ultrasound (thermal/non thermal): Yes For the Purpose of:: To decrease pain, To increase ROM, To improve nutrient delivery to tissue, To increase oxygenation perfusion, To improve health of tissue, To decrease soft tissue restriction Thank you for the opportunity to evaluate your patient. For Medicare and Medicare HMO plans, please review the plan of care and approve it. It will need to be FAXED BACK to us at [phone] for Medicare purposes. For Medicare only, by signing this I certify the plan of care. Please let me know if there are questions or concerns regarding this plan of care. Physician Signature: Date:
--- NOTE | 2018-09-12 13:28 | HP.PTDCNRP_ITS ---
HP - Discharge Summary (1) - Patient Information RASHAD KRISHNAMURTHY was seen in my office for initial evaluation on 08/27/18. The following Plan of Care was established for this patient: Initial Frequency: 2x /Week Initial Duration: 4 Weeks - Anticipated Interventions Patient/Client Instruction: Educate patient on: Condition, Plan of Care For the Purpose of:: To decrease pain, To increase ROM, To improve muscle p erformance and motor function, To improve ability to perform ADL's, To increase tolerance to activity/condition/position, To decrease level of supervision to perform tasks, To improve ability of physical actions for home/community/work/leisure, To improve health of tissue, To decrease soft tissue restriction, To improve safety, To improve health and function, To improve ability to perform tasks related to life management Therapeutic Exercise to Include: Strength training, Body mechanics, Postural training, Flexibilty training, Dynamic Lumbar Stabilization For the Purpose of:: To decrease pain, To increase ROM, To improve muscle performance and motor function, To increase tolerance to activity/condition/position, To improve performance and independence with ADL's, To improve ability of physical actions for home/community/work/leisure, To improve health of tissue, To decrease soft tissue restriction, To increase flexibility/ROM, To improve ability to perform tasks related to life management TENS: Yes IF ES: Yes Thermo therapy (hot pack): Yes Ultrasound (thermal/non thermal): Yes For the Purpose of:: To decrease pain, To increase ROM, To improve nutrient delivery to tissue, To increase oxygenation perfusion, To improve health of tissue, To decrease soft tissue restriction This patient was last seen in our office . Pertinent comments regarding their Physical therapy will appear below: Patient seen for Intial PT evaluation for HEP thus is d/c . Stated doing ex's on own. At this point I will be discontinuing this patient from physical therapy. I would be happy to see this patient again in the future if found appropriate by the physician. Thank you! Maksim Telles, PT, Cert MDT, OCS
== END 2018-08-27 19:00 | disposition home or self-care (01) ==
LOC: PT 07:50
PROVIDERS: Family Provider Family Medicine; PCP Family Medicine; Referring Provider Orthopaedic Surgery; Visit Provider Orthopaedic Surgery
DX: M54.16 Radiculopathy, lumbar region (principal); M54.9 Dorsalgia, unspecified
CPT/HCPCS: 97110; 97162

== ENCOUNTER → 2019-09-11 16:36 | Outpatient (CLI) | payer BC, SELFPAY ==
[2018-08-14 09:11] VITALS: BMI 26.1
--- NOTE | 2019-09-11 16:41 | US_ITS ---
STUDY: Soft tissue ULTRASOUND REASON FOR EXAM: Female, 44 years old. PALP LUMP LT NECK- X 2 MONTHS NO PAIN PEA SIZE TECHNIQUE: Ultrasound evaluation of the soft tissue was performed with real-time and static payton-scale imaging. COMPARISON: None. FINDINGS: In region of palpable abnormality (left neck), there is a small (7 x 5 x 4 mm) hypoechoic nodule, 3.5 mm below the skin surface) with reniform shape and central echogenic hilum suggesting a small lymph node. Additional lymph nodes are identified with the largest in the left submandibular region measuring 1.0 x 2.4 cm with a preserved reniform shape and central echogenic rufus. Similar appearing lymph node of the right neck measures 1.7 x 0.6 x 0.4 cm. US/Ext Non Vasc Limited/Soft Tiss IMPRESSION: 1. Subcentimeter nodule in region of palpable abnormality likely represents a small lymph node. 2. Reactive-appearing adenopathy of the right and left neck (submandibular). Recommend follow-up ultrasound in 3 months. Electronically Signed: Milton Molina MD ([place]) at 8:26 EST , Service support ,
== END ==
PROVIDERS: Family Provider Family Medicine; PCP Family Medicine; Referring Provider Family Medicine; Visit Provider Family Medicine
DX: R59.0 Localized enlarged lymph nodes (principal)
CPT/HCPCS: 76882

== ENCOUNTER → 2022-04-25 | Outpatient (CLI) | payer BC, SELFPAY ==
[2022-04-25 09:06] LABS: Absolute Lymphocyte Count 2.03 X10^3/uL (0.83-4.51); Absolute Neutrophil Count 5.2 X10^3/uL (2.0-7.7); Basophil# 0.05 X10^3/uL; Basophil% 0.6 % (0-1); Eosinophil# 0.31 X10^3/uL; Eosinophils% 3.8 % (0-5); Hematocrit 37.8 % (37-47); Hemoglobin 12.4 g/dL (12.0-15.0); Lymphocyte # 2.03 X10^3/ul (0.83-4.51); Mean Corp Hgb Conc 32.8 g/dL (32-36); Mean Corpuscular Hgb 27.9 pg (27.0-32.0); Mean Corpuscular Volume 85.1 fL (81-99); Mean Platelet Vol. 12.5 fl (6.2-12.0); Monocyte# 0.51 X10^3/uL; Monocyte% 6.3 % (0-10); NRBC Flagged by Analyzer 0 % (0-5); Neutrophil % 63.9 % (47-70); Platelet Count 216 K/mm3 (150-450); RBC Distribution Width CV 13.9 % (11.6-14.6); Red Blood Count 4.44 M/mm3 (4.2-5.4); White Blood Count 8.1 K/mm3 (4.4-11.0)
[2022-04-25 09:51] LABS: ALB/GLOB Ratio 0.8 RATIO (0.9-2.4); AST(SGOT) 21 U/L (15-37); Alanine Aminotransfer ALT/SGPT 28 U/L (13-56); Albumin, Serum 3.4 g/dL (3.2-5.0); Alkaline Phosphatase 58 U/L (45-117); Anion Gap 5 (5-15); BUN 13 mg/dL (7-18); BUN/Creat Ratio 17.9 RATIO (10-20); CRP, High Sensitivity Cardiac 2.93 mg/L; Calcium,Total 8.7 mg/dL (8.5-10.1); Chloride 109 mmol/L (98-107); Cholesterol 221 mg/dL (200); Creatinine, Serum 0.72 mg/dL (0.55-1.02); EST Glomerular Filtration Rate 91 mL/min (>60); Est Glom Filt Rate - Afr Amer 110 mL/min (>60); Estradiol 30.4 pg/mL; Free T3 2.4 pg/mL (2.18-3.98); Glucose 102 mg/dL (74-106); High Density Lipoprotein 43 mg/dL; Magnesium 2.2 mg/dL (1.6-2.6); Protein, Total 7.4 g/dL (6.4-8.2); Sodium Level 138 mmol/L (136-145); Triglycerides 256 mg/dL; Very Low Density Lipoprotein 51 mg/dL (5-40)
[2022-04-25 10:47] LABS: Progesterone Level < 0.21 ng/mL (See Comment)
== END | disposition home or self-care (01) ==
PROVIDERS: PCP Family Medicine; Referring Provider Family Medicine; Visit Provider Family Medicine
DX: E78.5 Hyperlipidemia, unspecified (principal); I10 Essential (primary) hypertension; R00.2 Palpitations; R53.83 Other fatigue; Z51.81 Encounter for therapeutic drug level monitoring; N93.8 Other specified abnormal uterine and vaginal bleeding
CPT/HCPCS: 36415; 80053; 80061; 82670; 83735; 84144; 84439; 84443; 84481; 85025; 86141

== ENCOUNTER → 2022-04-29 | Outpatient (CLI) | payer BC, SELFPAY | END | disposition home or self-care (01) | LOC: PSN 11:52 | PROVIDERS: PCP Family Medicine; Referring Provider Family Medicine; Visit Provider Family Medicine | DX: R00.2 Palpitations (principal) | CPT/HCPCS: 93225; 93226 ==

== ENCOUNTER → 2024-02-05 | Outpatient (CLI) | payer BC, SELFPAY ==
[2024-02-05 17:56] LABS: Erythrocyte Sedimentation Rate 12 mm/hr (0-30)
[2024-02-07 16:10] LABS: ANTINUCLEAR ANTIBODIES DIRECT Positive (Negative); Anti-Centromere B Ab <0.2 AI (0.0-0.9); Anti-Chromatin <0.2 AI (0.0-0.9); Anti-Jo <0.2 AI (0.0-0.9); Anti-Scleroderma-70 AB <0.2 AI (0.0-0.9); Anti-dsDNA Ab <1 IU/mL (0-9); PROGESTERONE 5.3 ng/mL (.); RNP Ab 1.1 AI (0.0-0.9); SJOGREN'S Anti-SS-A test < 0.2 AI (0.0-0.9); SJOGREN'S Anti-SS-B test < 0.2 AI (0.0-0.9); Smith Ab <0.2 AI (0.0-0.9); Thyroglobulin Antibody < 1.0 IU/mL (0.0-0.9); Thyroid Peroxidase AB 13 IU/mL (0-34)
== END | disposition home or self-care (01) ==
LOC: BFHLAB 14:53
PROVIDERS: PCP Family Medicine; Referring Provider Family Medicine; Visit Provider Family Medicine
DX: R53.83 Other fatigue (principal); M25.50 Pain in unspecified joint; Z51.81 Encounter for therapeutic drug level monitoring; M79.10 Myalgia, unspecified site
CPT/HCPCS: 36415; 82670; 83001; 83002; 84144; 84439; 84443; 84481; 85652; 86038; 86140; 86225; 86235; 86376; 86431; 86800